=== PATIENT | female | born 1955 | race African-American/Black ===

== ENCOUNTER 2021-03-17 16:10 | Emergency (ER) | payer OTHER ==
[~2021-03-17] VITALS: Ht 152.4 cm; Wt 86.2 kg
[2021-03-17] MEDS ORDERED: TOPROL XL25 M1 (16:19)
[2021-03-17] MEDS ORDERED: PLAVIX75 MG (16:19)
[2021-03-17] MEDS ORDERED: ISOSORBIDE DINIT5 MG (16:19)
[2021-03-17] MEDS ORDERED: ATORVASTATIN CA20 MG (16:19)
[2021-03-17] MEDS ORDERED: HYOSCYAMINE0.125 M2 (16:20)
[2021-03-17] MEDS ORDERED: HUMULIN 70100 UNIT/2 (16:20)
[2021-03-17] MEDS ORDERED: METFORMIN HCL1000 M2 (16:20)
[2021-03-17] MEDS ORDERED: CHILDREN'S ASPI81 MG (16:20)
[2021-03-17] MEDS ORDERED: CORTISPORIN EAR10 M1 OT (18:24)
== END 2021-03-17 18:32 | disposition home or self-care (01) ==
LOC: ER 16:10
DX: H60.8X2 Other otitis externa, left ear (principal)

== ENCOUNTER 2021-11-20 13:00 | Outpatient (CLI) | payer OTHER ==
[~2021-11-20 13:00] MED LIST: ATORVASTATIN CA20 MG; CHILDREN'S ASPI81 MG; CORTISPORIN EAR10 M1 OT; HUMULIN 70100 UNIT/2; HYOSCYAMINE0.125 M2; ISOSORBIDE DINIT5 MG; METFORMIN HCL1000 M2; PLAVIX75 MG; TOPROL XL25 M1
== END 2021-11-20 14:00 | disposition home or self-care (01) ==
LOC: MAMO-SONO 13:00
PROVIDERS: ATTEND Internal Medicine
DX: Z12.31 Encounter for screening mammogram for malignant neoplasm of breast (principal)

== ENCOUNTER 2022-01-31 09:50 | Emergency (ER) | payer OTHER ==
[~2022-01-31] VITALS: Ht 154.9 cm; Wt 81.2 kg
== END 2022-01-31 12:01 | disposition home or self-care (01) ==
LOC: ER 09:50
DX: M79.642 Pain in left hand (principal); E11.9 Type 2 diabetes mellitus without complications; Z79.4 Long term (current) use of insulin; Z79.84 Long term (current) use of oral hypoglycemic drugs; I10 Essential (primary) hypertension

== ENCOUNTER 2024-08-14 13:32 | Emergency (ER) | payer OTHER ==
[~2024-08-14] VITALS: Ht 154.9 cm; Wt 72.6 kg
[2024-08-14] MEDS ORDERED: ACTOS30 MG PO (14:09)
[2024-08-14] MEDS ORDERED: ZESTRIL40 M1 PO (14:09)
[2024-08-14] MEDS ORDERED: 0.9 % SODIUM CHLORIDE 500 ML IV ONE (14:30)
[2024-08-14] MEDS ORDERED: ONDANSETRON HCL 2 MG/ML VIAL IV ONE (14:30)
[2024-08-14] MEDS ORDERED: FAMOTIDINE/PF 20 MG/2 ML VIAL IV ONE (14:30)
[2024-08-14] MEDS ORDERED: INSULIN REGULAR, HUMAN 1,000 UNIT/10 ML UNITS IV ONE (14:45)
[2024-08-14] MEDS ORDERED: FAMOTIDINE/PF 20 MG/2 ML VIAL ONE (15:21)
[2024-08-14] MEDS ORDERED: ONDANSETRON HCL 2 MG/ML VIAL ONE (15:21)
[2024-08-14 16:08] LABS: HEMATOCRIT 35.7 % (36.0-45.00); HEMOGLOBIN 11.7 g/dL (12.0-15.00); MEAN CELL VOLUME 92.2 fL (80.00-100.00); MEAN CORPUSCULAR HEMOGLOBIN 30.2 pg (27.00-32.0); MEAN CORPUSCULAR HGB CONC 32.7 g/dl (32.0-36.0); PLATELET COUNT 217 K/uL (150-450); RED BLOOD COUNT 3.87 M/uL (4.00-6.00); RED CELL DISTRIBUTION WIDTH 14.4 % (11.5-14.5)
[2024-08-14 16:39] LABS: ALBUMIN 3.8 gm/dL (3.4-5.0); BILIRUBIN TOTAL 0.52 mg/dL (0.3-1.2); CALCIUM 9.5 mg/dL (8.5-10.1); CREATININE SERUM 0.7 mg/dL (0.55-1.02); GFR 82.72; GLOBULINA 3.1 G/DL (2.4-3.5); POTASSIUM 4.41 mEq/L (3.5-5.1); TOTAL PROTEIN 6.9 gm/dL (6.4-8.2)
[2024-08-14 16:46] LABS: PH,URINE 6.5 (5.0-8.0); URINE APPEARANCE Clear; URINE BILIRRUBIN Negative (NEGATIVE); URINE BLOOD Negative; URINE COLOR Yellow; URINE KETONE Negative (NEGATIVE); URINE LEUKOCYTE Negative; URINE NITRATE Negative; URINE PROTEIN Negative (NEGATIVE); URINE UROBILINOGEN 0.2 E.U./dl
[2024-08-14 16:47] LABS: URINE BACTERIA 24.3 uL (0.0-1933); URINE EPITHELIAL CELLS 2.8 uL (0.0-38.8); URINE GLUCOSE >=1000 MG/DL (NEGATIVE); URINE RBC 0.8 uL (0.0-20.8); URINE WBC 2.2 uL (0.0-23.2)
== END 2024-08-14 17:23 ==
LOC: ER 13:33
PROVIDERS: Emergency Medicine
DX: E11.65 Type 2 diabetes mellitus with hyperglycemia (principal); R11.0 Nausea; R10.13 Epigastric pain; Z79.4 Long term (current) use of insulin; I10 Essential (primary) hypertension
CPT/HCPCS: 36415; 70450; 96365; 96366; 99284; J2405; J3490